=== PATIENT | male | born 1985 | race Caucasian/White ===

== ENCOUNTER 2020-01-11 06:41 | Day surgery (SDC) | payer MEDICAID ==
[2020-01-11] MEDS ORDERED: Bupivacaine 0.5%/EPINEPHrine 1:200,000 50 ML MDV ONE (06:42)
[2020-01-11] MEDS ORDERED: Sodium Chloride 0.9% 1,000 ML IV SCH (07:30)
[2020-01-11] MEDS ORDERED: ceFAZolin 2 GM in Premix Bag 1 BAG IV ONE (08:00)
[2020-01-11] MEDS ORDERED: Propofol 200 MG/20 ML SDV ONE ×2 (08:06→08:22)
[2020-01-11] MEDS ORDERED: fentaNYL 100 MCG/2 ML SDV ONE (08:07)
[2020-01-11] MEDS ORDERED: Midazolam 1 MG/ML 2 ML SDV ONE (08:07)
[2020-01-11] MEDS ORDERED: Acetaminophen/HYDROcodone 325-5 MG Tab PO ONE (09:50)
--- NOTE | 2020-01-11 16:35 | OR ---
DATE OF PROCEDURE: 01/11/2020 SURGEON: Pablo Sevilla MD PROCEDURE: Excision of pilonidal cyst. COMPLICATIONS: None. STARCH COOKER: None. ANESTHESIA: MAC/local. RISKS: Risks, benefits, alternatives, and limitations including, but not limited to infection, bleeding, cardiovascular issues due to the patient's body habitus and prone positioning, chronic wounds, which can take years to heal, chronic pain, and other risks not listed here were explained to the patient who wished to proceed. PROCEDURE IN DETAIL: The patient was placed in prone position. The cyst was slightly to the right of the midline. An elliptical incision was made around the cyst. This was carried down after using a 15 blade with electrocautery. This was anesthetized with 40 mL of local prior to initiation. This was then carried down with electrocautery. Finger palpation was used. No other abnormalities were noted. This was sent to pathology. Minimal bleeding was controlled by electrocautery. The wound was closed with 2-0 Prolene interrupted sutures and packed with iodoform gauze, leaving approximately 20% open. Pablo Sevilla MD /[id number]
== END 2020-01-11 10:13 | disposition home or self-care (01) ==
LOC: JP.SDS 06:41
PROVIDERS: ATTEND Surgery
DX: L05.91 Pilonidal cyst without abscess (principal); L08.9 Local infection of the skin and subcutaneous tissue, unspecified; G47.33 Obstructive sleep apnea (adult) (pediatric); F17.210 Nicotine dependence, cigarettes, uncomplicated; F32.9 Major depressive disorder, single episode, unspecified; F41.9 Anxiety disorder, unspecified; F90.9 Attention-deficit hyperactivity disorder, unspecified type; E66.01 Morbid (severe) obesity due to excess calories; Z68.43 Body mass index [BMI] 50.0-59.9, adult
CPT/HCPCS: 88304; A9270-GY; J0690; J2250; J2704; J3010; J3490; J7030

== ENCOUNTER 2023-08-14 15:38 | Emergency (ER) | payer MEDICAID, OTHER ==
[2023-08-14 16:03] LABS: BASOPHILS ABSOLUTE AUTO 0.06 K/uL (0.00-0.10); BASOPHILS PERCENT AUTO 0.8 % (0.1-1.3); EOSINOPHILS ABSOLUTE AUTO 0.13 K/uL (0.00-0.40); EOSINOPHILS PERCENT AUTO 1.7 % (0.0-5.4); HEMATOCRIT 41.4 % (38.4-49.7); HEMOGLOBIN 13.9 g/dL (12.9-16.9); IMMATURE GRAN ABSOLUTE AUTO 0.04 K/uL (0.00-0.23); IMMATURE GRAN PERCENT AUTO 0.5 % (0.0-0.7); LYMPHOCYTES ABSOLUTE AUTO 2.34 K/uL (0.8-3.3); LYMPHOCYTES PERCENT AUTO 30.4 % (11.4-47.7); MEAN CORPUSCULAR HEMOGLOBIN 30.5 pg (31.6-35.5); MEAN CORPUSCULAR HGB CONC 33.6 g/dL (31.6-35.5); MONOCYTES ABSOLUTE AUTO 0.72 K/uL (0.20-0.90); MONOCYTES PERCENT AUTO 9.3 % (3.3-12.6); NEUTROPHILS ABSOLUTE AUTO 4.42 K/uL (1.0-7.6); NEUTROPHILS PERCENT AUTO 57.3 % (40.0-78.1); PLATELET COUNT,PLT 299 K/uL (130-375); RED BLOOD CELL COUNT 4.55 M/uL (4.14-5.76); WHITE BLOOD CELL COUNT,WBC 7.7 K/uL (3.2-11.0)
[2023-08-14] MEDS: Aspirin 81 MG Tab.Chew PO ONE (16:13)
[2023-08-14] MEDS: Nitroglycerin 0.4 MG Tab.SL SL PRN (16:14)
[2023-08-14] MEDS: Sodium Chloride 0.9% 500 ML IV SCH (16:19)
[2023-08-14 16:21] LABS: A/G RATIO 0.9 (1.2-2.2); ALANINE AMINOTRANSFERASE,ALT 14 U/L (12-78); ALBUMIN 3.6 g/dL (3.4-5.0); ALKALINE PHOSPHATASE 56 U/L (46-116); ANION GAP 12.3 mmol/L (5.0-14.0); ASPARTATE AMNIOTRANSFERASE,AST 18 U/L (15-37); BILIRUBIN TOTAL 0.2 mg/dL (0.2-1.0); BLOOD UREA NITROGEN,BUN 22 mg/dL (7-18); CALCIUM 9.3 mg/dL (8.5-10.1); CARBON DIOXIDE,CO2 24 mmol/L (21-32); CHLORIDE,CL 106 mmol/L (100-108); CREATININE 1.2 mg/dL (0.8-1.3); ESTIMATED GFR 79 mL/min (>60); GLUCOSE RANDOM 107 mg/dL (74-106); PRO B-TYPE NATRIUR PEPT,BNPPRO 13 pg/mL (5-125); PROTEIN TOTAL,TP 7.8 g/dL (6.4-8.2); SODIUM,NA 142 mmol/L (140-148)
[2023-08-14 16:26] LABS: APPEARANCE,URINE CLEAR (CLEAR); BILIRUBIN,URINE NEGATIVE (NEGATIVE); COLOR,URINE YELLOW (YELLOW); GLUCOSE,URINE NEGATIVE (NEGATIVE); KETONES,URINE NEGATIVE (NEGATIVE); LEUKOCYTE ESTERASE,URINE NEGATIVE (NEGATIVE); NITRITE,URINE NEGATIVE (NEGATIVE); OCCULT BLOOD,URINE NEGATIVE (NEGATIVE); PROTEIN,URINE NEGATIVE (NEGATIVE); UROBILINOGEN,URINE 0.2 EU/dL (0.2-1.0)
[2023-08-14 16:27] LABS: PROTHROMBIN TIME 10.5 sec (9.2-10.6)
[2023-08-14 16:30] LABS: AMORPHOUS SEDIMENT,URINE NOT SEEN; AMPHETAMINES SCREEN, URINE NEGATIVE (NEGATIVE); BACTERIA,URINE RARE; BARBITURATE SCREEN,URINE NEGATIVE (NEGATIVE); BENZODIAZEPINES SCREEN,URINE NEGATIVE (NEGATIVE); EPITHELIAL CELLS,URINE RARE; METHADONE SCREEN, URINE NEGATIVE (NEGATIVE); METHAMPHETAMINES SCREEN, URINE NEGATIVE (NEGATIVE); MUCUS,URINE NOT SEEN; OXYCODONE SCREEN,URINE NEGATIVE (NEGATIVE); PROPOXYPHENE SCREEN,URINE NEGATIVE (NEGATIVE); RBC,URINE 0-5 (0-5); THC SCREEN,URINE 50 NG/ML NEGATIVE (NEGATIVE); WBC,URINE 0-5 (0-5)
[2023-08-14 16:48] LABS: CORONAVIRUS COVID-19 NAA NEGATIVE (NEGATIVE); INFLUENZA A NAA NEGATIVE (NEGATIVE); INFLUENZA B NAA NEGATIVE (NEGATIVE); RESPIRATORY SYNCYTIAL VIR NAA NEGATIVE (NEGATIVE)
== END 2023-08-14 18:43 | disposition home or self-care (01) ==
LOC: JP.ED 15:38
DX: R07.2 Precordial pain (principal); Z79.899 Other long term (current) drug therapy
CPT/HCPCS: 0241U; 36415; 71045; 80053; 80305; 81001; 83605; 83880; 84484; 85025; 85379; 85610; 93005; 99285; A9270; J7030; 93010